=== PATIENT | male | born 1955 | race Caucasian/White ===

== ENCOUNTER 2020-10-14 09:09 | Emergency (ER) | payer SELFPAY ==
[~2020-10-14] VITALS: Ht 175.3 cm; Wt 110.6 kg
[2020-10-14 11:31] LABS: BASO # 0.1 10^3/uL (0.0-0.2); BASO % 0.9 % (0.0-1.0); EOS # 0.3 10^3/uL (0.0-0.5); EOS % 4.3 % (0.0-3.0); HEMATOCRIT 42.7 % (42.0-52.0); HEMOGLOBIN 13.8 g/dl (13.5-17.5); LYMPH # 2.1 10^3/uL (1.5-5.0); LYMPH % 27.7 % (24.0-44.0); MEAN CORPUSCULAR HEMOGLOBIN 28.8 pg (27.0-33.0); MEAN CORPUSCULAR HGB CONC 32.3 g/dl (32.0-36.5); MEAN CORPUSCULAR VOLUME 89.1 fl (80.0-96.0); MONO # 0.9 10^3/uL (0.0-0.8); NEUTROPHILS # 4.1 10^3/uL (1.5-8.5); NEUTROPHILS % 54.7 % (36.0-66.0); PLATELET COUNT, AUTOMATED 348 10^3/uL (150-450); RED BLOOD COUNT 4.79 10^6/uL (4.30-6.10); WHITE BLOOD COUNT 7.5 10^3/uL (4.0-10.0)
--- NOTE | 2020-10-14 11:41 | REP ---
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 TECHNIQUE: Real time compression and duplex Doppler interrogation of the right lower extremity deep venous system is performed. FINDINGS: The right common femoral, superficial femoral and popliteal veins are fully compressible with transducer pressure and demonstrate normal spontaneous and phasic flow, without evidence of deep venous thrombosis. There is a mildly enlarged right inguinal lymph node measuring 3.3 x 1.2 x 1.7 cm. IMPRESSION: No evidence of deep venous thrombosis of the right lower extremity femoral popliteal venous system. Mildly enlarged right inguinal lymph node. <Electronically signed by Jarrod Rubio > 10/14/20 [id number]
[2020-10-14 11:57] LABS: BLOOD UREA NITROGEN 14 MG/DL (7-18); C REACTIVE PROTEIN QUANTITATIV 5.51 MG/DL (0.00-0.30); CALCIUM LEVEL 7.9 MG/DL (8.8-10.2); CARBON DIOXIDE LEVEL 27 MEQ/L (21-32); CHLORIDE LEVEL 106 MEQ/L (98-107); CREATININE FOR GFR 0.84 MG/DL (0.70-1.30); GLOMERULAR FILTRATION RATE > 60.0 (>49); GLUCOSE, FASTING 85 MG/DL (70-100); NT-PRO BNP 218 PG/ML (<125); POTASSIUM SERUM 4.4 MEQ/L (3.5-5.1); SODIUM LEVEL 138 MEQ/L (136-145)
[2020-10-14] MEDS ORDERED: PRED20TA PO (12:31)
[2020-10-14] MEDS ORDERED: FURO20TA2 PO (12:38)
[2020-10-14 12:39] VITALS: BP 170/75
[2020-10-14 13:18] LABS: ERYTHROCYTE SEDIMENTATION RATE 36 mm/hr (0-20)
== END 2020-10-14 12:45 | disposition home or self-care (01) ==
LOC: M ED 09:09
DX: M06.9 Rheumatoid arthritis, unspecified (principal); R22.43 Localized swelling, mass and lump, lower limb, bilateral; J44.9 Chronic obstructive pulmonary disease, unspecified; Z88.6 Allergy status to analgesic agent; Z86.16 Personal history of COVID-19